=== PATIENT | male | born 1995 | race Hispanic/Latino ===

== ENCOUNTER 2017-08-15 01:42 | Emergency (ER) | payer OTHER, SELFPAY ==
[2017-08-15 01:45] VITALS: BP 175/74; PULSE 60; RESP 18; TEMP 36.3; O2SAT 96; BMI 31.9
--- NOTE | 2017-08-15 01:53 | RAD_ITS ---
STUDY: X-RAY - LEFT KNEE REASON FOR EXAM: Male, 21 years old. Trauma TECHNIQUE: 5 view(s) of the knee. COMPARISON: None. FINDINGS: Normal visualized distal femur. Normal visualized proximal tibia and fibula. Normal proximal tibiofibular articulation. Normal medial femorotibial compartment. Normal lateral femorotibial compartment. Normal patellofemoral articulation. The soft tissue structures are unremarkable. RAD/Knee 4 or More Views IMPRESSION: Normal x-ray examination of the knee. Electronically Signed: Geovani Juarez MD at 2:24 EST , Service support ,
--- NOTE | 2017-08-15 02:41 | ED.DCSUM_ITS ---
- ER Visit Summary Date of Service: 08/15/17 Chief Complaint: Left knee pain and swelling History of Present Illness: The patient is a 21 M who complains of left knee pain. Less than an hour ago he was walking down steps and twisted his left knee. He has been able to ambulate. He denies paresthesias weakness loss of function. He did not fall. No other injuries. Physical Examination: Afebrile vitals are stable Heart regular Lungs clear Active full range of motion of the left knee I appreciate no soft tissue swelling there is no appreciable effusion he has some tenderness along the medial and lateral joint line extensor mechanism intact normal distal sensation brisk capillary refill and 2+ dorsalis pedis pulse Test Results: Knee x-ray is normal Emergency Department Course and Treatment: History and examination consistent with a knee sprain. He was given an Soy wrap. He was instructed on rest ice and elevation. He was instructed on anti-inflammatory use. He will follow-up as an outpatient. He was discharged. Treatment Plan: [] Disposition: Discharge Impression: Left knee sprain This note was generated with [employer] dictation software. It may contain incorrect words, spelling, and punctuation that were not noted in review of the chart prior to signing ED Disposition - Plan for ED Patient: Chief Complaint: Lower Extremity Injury Referrals: Care Physician,No Primary [Primary Care Provider] -
--- NOTE | 2017-08-15 02:41 | ED.DEP ---
ED Disposition - Plan for ED Patient: Chief Complaint: Lower Extremity Injury Instructions: ED Sprain Knee Prescriptions: Naproxen [Naprosyn] 500 mg PO BID PRN #20 tab Referrals: Care Physician,No Primary [Primary Care Provider] - [facility] OF PHYSICIANS] - [facility] [GROUP OF PHYSICIANS] -
[2017-08-15 02:55] VITALS: BP 149/68; PULSE 63; O2SAT 98
== END 2017-08-15 02:55 | disposition home or self-care (01) ==
PROVIDERS: Emergency Provider Emergency Medicine
DX: S83.92XA Sprain of unspecified site of left knee, initial encounter (principal); X50.1XXA Overexertion from prolonged static or awkward postures, initial encounter; Y93.01 Activity, walking, marching and hiking; Y92.9 Unspecified place or not applicable; Z72.0 Tobacco use
CPT/HCPCS: 73564; 99282